=== PATIENT | female | born 1990 | race African-American/Black ===

== ENCOUNTER 2025-04-11 03:54 | Emergency (ER) | payer OTHER ==
[~2025-04-11] VITALS: Ht 149.9 cm; Wt 46.4 kg
[2025-04-11 04:13] VITALS: TEMP 97.5
[2025-04-11 04:26] VITALS: BP 144/96; PULSE 86; RESP 18; O2SAT 100
[2025-04-11 05:04] LABS: PLATELET COUNT (AUTO) 204 K/uL (150-450); RED BLOOD CELL COUNT(AUTO) 4.32 MIL/uL (4.00-5.20); RED CELL DISTRIBUTION WIDTH 17.2 % (11.5-14.5); WHITE BLOOD COUNT (AUTO) 3.6 K/uL (4.5-11.0)
[2025-04-11 05:09] LABS: CALCIUM, TOTAL 8.3 mg/dL (8.8-10.5); CREATININE 0.68 mg/dL (0.60-1.30); GLOMERULAR FILTR. RATE CALC > 60 mL/min (>60); GLUCOSE,RANDOM 72 mg/dL (70-110); SODIUM SERUM 139 mmol/L (136-145); UREA NITROGEN, BLOOD 9 mg/dL (7-18)
[2025-04-11 05:16] LABS: ASPARTATE AMINOTRANSFERASE 34 U/L (15-37); TOTAL PROTEIN, SERUM 7.2 g/dL (6.4-8.2)
== END 2025-04-11 06:26 ==
LOC: EMS 03:54
DX: F15.90 Other stimulant use, unspecified, uncomplicated (principal); Z02.89 Encounter for other administrative examinations; Z87.59 Personal history of other complications of pregnancy, childbirth and the puerperium; Z88.6 Allergy status to analgesic agent
CPT/HCPCS: 74176; 80053; 84703; 85025; 99284